=== PATIENT | female | born 1950 | race Caucasian/White ===

== ENCOUNTER 2018-08-30 13:56 | Outpatient (CLI) | payer OTHER | END 2018-08-30 14:03 | disposition home or self-care (01) | LOC: RAD 13:56 | DX: M25.562 Pain in left knee (principal); M17.12 Unilateral primary osteoarthritis, left knee; M79.671 Pain in right foot ==

== ENCOUNTER → 2018-09-24 | Outpatient (CLI) | payer OTHER | END | disposition home or self-care (01) | LOC: NUCLEAR 09-12 14:30 | DX: M81.0 Age-related osteoporosis without current pathological fracture (principal) ==

== ENCOUNTER 2021-03-12 10:17 | Outpatient (CLI) | payer OTHER | END 2021-03-12 10:26 | disposition home or self-care (01) | LOC: RAD 10:17 | PROVIDERS: ATTEND Orthopaedic Surgery | DX: M17.11 Unilateral primary osteoarthritis, right knee (principal); M25.761 Osteophyte, right knee ==

== ENCOUNTER 2022-01-21 08:17 | Outpatient (CLI) | payer OTHER | END 2022-01-21 08:24 | disposition home or self-care (01) | LOC: RAD 08:17 | PROVIDERS: ATTEND Orthopaedic Surgery Adult Reconstructive Orthopaedic Surgery | DX: M16.11 Unilateral primary osteoarthritis, right hip (principal); M17.11 Unilateral primary osteoarthritis, right knee ==

== ENCOUNTER 2022-11-16 13:46 | Outpatient (CLI) | payer OTHER | END 2022-11-16 13:50 | disposition home or self-care (01) | LOC: SONOGRAMA 13:46 | PROVIDERS: ATTEND Family Medicine | DX: R22.1 Localized swelling, mass and lump, neck (principal) ==

== ENCOUNTER 2024-08-21 13:30 | Outpatient (CLI) | payer OTHER | END 2024-08-21 13:33 | disposition home or self-care (01) | LOC: SONOGRAMA 13:30 | PROVIDERS: ATTEND General Practice | DX: E04.2 Nontoxic multinodular goiter (principal) ==

== ENCOUNTER 2024-08-21 14:12 | Outpatient (CLI) | payer OTHER | END 2024-08-21 14:13 | disposition home or self-care (01) | LOC: NUCLEAR 14:12 | PROVIDERS: ATTEND General Practice | DX: M81.0 Age-related osteoporosis without current pathological fracture (principal) ==